=== PATIENT | male | born 1985 | race Asian ===

== ENCOUNTER 2019-09-16 23:28 | Emergency (ER) | payer MEDICAID ==
[~2019-09-16] VITALS: Ht 172.7 cm; Wt 77.0 kg
[2019-09-17] MEDS ORDERED: ACETAMINOPHEN 325MG TABLET PO ONE (00:30)
[2019-09-17] MEDS ORDERED: BACITRACIN ZINC OINT UDPKT TOP ONE (00:30)
[2019-09-17] MEDS ORDERED: LIDOCAINE HCL/PF 1% 10 MG/ML 5ML VIAL IJ ONE (00:30)
[2019-09-17] MEDS ORDERED: TETANUS, DIPHTHERIA, PERTUSSIS VAC/PF 0.5ML (>7YR OLD) IM ONE (00:30)
[2019-09-17 01:15] VITALS: BP 129/81
== END 2019-09-17 01:49 | disposition home or self-care (01) ==
LOC: ER 23:58
DX: S01.01XA Laceration without foreign body of scalp, initial encounter (principal); Y04.2XXA Assault by strike against or bumped into by another person, initial encounter; Y93.89 Activity, other specified; Y92.89 Other specified places as the place of occurrence of the external cause; Z23 Encounter for immunization
CPT/HCPCS: 12001; 90471; 90715; 99283; J3490

== ENCOUNTER 2019-09-18 14:20 | Emergency (ER) | payer MEDICAID ==
[~2019-09-18] VITALS: Ht 172.7 cm; Wt 77.5 kg
[2019-09-18 14:27] VITALS: BP 143/76
== END 2019-09-18 15:55 | disposition home or self-care (01) ==
LOC: ER 14:20
DX: S01.01XD Laceration without foreign body of scalp, subsequent encounter (principal); X58.XXXD Exposure to other specified factors, subsequent encounter; Z48.00 Encounter for change or removal of nonsurgical wound dressing
CPT/HCPCS: 99281

== ENCOUNTER 2019-09-30 12:52 | Emergency (ER) | payer MEDICAID ==
[~2019-09-30] VITALS: Ht 172.7 cm; Wt 82.0 kg
[2019-09-30 13:05] VITALS: BP 121/72
== END 2019-09-30 13:40 | disposition home or self-care (01) ==
LOC: ER 12:52
DX: Z48.02 Encounter for removal of sutures (principal); R03.0 Elevated blood-pressure reading, without diagnosis of hypertension
CPT/HCPCS: 99281